=== PATIENT | male | born 1945 | race Caucasian/White ===

== ENCOUNTER 2019-05-15 09:38 | Outpatient (CLI) | payer MEDICARE, BC | END 2019-05-15 09:39 | disposition home or self-care (01) | LOC: LABBT 09:38 | PROVIDERS: ATTEND Surgery | DX: Z01.818 Encounter for other preprocedural examination (principal); N63.20 Unspecified lump in the left breast, unspecified quadrant | CPT/HCPCS: 93005; 93010 ==

== ENCOUNTER 2019-05-20 12:36 | Outpatient (CLI) | payer MEDICARE, BC ==
--- NOTE | 2019-05-20 13:19 | RAD ---
XR Chest Pa Lat STANDARD HISTORY: Preop cardiac catheter COMPARISON: 12/08/2007 FINDINGS: Changes of median sternotomy. The heart size is normal. The lungs are well expanded without focal areas of consolidation, pneumothorax or pleural effusions. IMPRESSION: No radiographic evidence of acute cardiopulmonary process.
[2019-05-20 13:46] LABS: #Basophils 0.1 thou/uL (0.0-0.2); #Eosinphils 0.4 thou/uL (0.0-0.7); #Lymphocytes 3.1 thou/uL (1.20-3.40); #Monocytes 0.9 thou/uL (0.11-0.59); #Neutrophils 7.6 thou/uL (1.40-6.50); %Basophils 0.8 % (0.0-1.0); %Eosinophils 3.5 % (0.0-10.0); %Lymphocytes 25.6 % (21.0-51.0); %Monocytes 7.3 % (0.0-10.0); %Neutrophils 62.8 % (42.0-75.0); Hemoglobin 13.4 g/dL (14.0-18.0); Mean Corpuscular HGB CONC 33.9 g/dL (32.0-36.0); Mean Corpuscular Volume 97.3 fL (78.0-98.0); Mean Platelet Volume 8.3 fL (7.4-10.4); Platelet Count 294 thou/uL (130-400); RBC Distribution Width 11.9 % (11.5-14.5); Red Blood Cell (RBC) Count 4.07 mill/uL (4.70-6.10); White Blood Cell (WBC) Count 12.1 thou/uL (4.8-10.8)
[2019-05-20 14:06] LABS: ALT (SGPT) 37 U/L (8-55); AST (SGOT) 37 U/L (5-34); Albumin 3.5 g/dL (3.4-4.8); Alkaline Phosphatase 120 U/L (40-110); Anion Gap 10 mmol/L (10-20); BUN (Urea Nitrogen) 15 mg/dL (8.4-25.7); Bilirubin, Total 0.5 mg/dL (0.2-1.2); Calc. Creatinine Clearance 0 mL/min (70-130); Calcium 8.7 mg/dL (7.8-10.44); Carbon Dioxide 25 mmol/L (23-31); Chloride 109 mmol/L (98-107); Estimated GFR-MDRD 64; Globulin 3.2 g/dL (2.4-3.5); Glucose 101 mg/dL (83-110); Potassium 3.6 mmol/L (3.5-5.1); Protein, Total 6.7 g/dL (5.8-8.1); Sodium 140 mmol/L (136-145)
== END 2019-05-20 12:37 | disposition home or self-care (01) ==
LOC: LABBT 12:36
PROVIDERS: ATTEND Internal Medicine Cardiovascular Disease
DX: Z01.818 Encounter for other preprocedural examination (principal)
CPT/HCPCS: 71046; 80053; 85025

== ENCOUNTER 2019-05-23 05:39 | Observation (INO) | payer MEDICARE, BC ==
[2019-05-20 12:47] VITALS: BMI 25.0
[2019-05-23] MEDS ORDERED: Heparin (Artline) 1,000 ML ONE (06:28)
[2019-05-23] MEDS ORDERED: Heparin 10,000 UNITS/1 ML VIAL ONE ×2 (06:28→14:22)
[2019-05-23 06:58] LABS: Cardiac Risk 3.3 (Less than 4.5)
[2019-05-23] MEDS ORDERED: diphenhydrAMINE 25 MG CAP ONE ×2 (07:15→12:53)
[2019-05-23] MEDS ORDERED: Hydrocortisone Sod Succ/PF 100 mg/2 ml Vial ONE ×2 (07:15→12:54)
[2019-05-23] MEDS ORDERED: Famotidine 20 MG TAB PO SCH ×2 (07:30→13:00)
[2019-05-23] MEDS ORDERED: diphenhydrAMINE 50 MG CAP PO SCH ×2 (13:00→17:45)
[2019-05-23] MEDS ORDERED: Hydrocortisone Sod Succ/PF 100 mg/2 ml Vial IVP SCH (13:00)
[2019-05-23] MEDS ORDERED: Iopamidol 370 76% 50 ML VIAL FS ONE (13:13)
[2019-05-23] MEDS ORDERED: Iopamidol 370 76% 100 ML VIAL ONE (13:13)
[2019-05-23] MEDS ORDERED: Midazolam HCl 2 mg/2 ml Vial ONE (15:09)
[2019-05-23] MEDS ORDERED: Fentanyl 100 MCG/2 ML VIAL ONE (15:09)
[2019-05-23] MEDS ORDERED: Bivalirudin 250 MG VIAL ONE (15:56)
[2019-05-23] MEDS ORDERED: Clopidogrel Bisulfate 300 MG TAB ONE (15:57)
[2019-05-23] MEDS ORDERED: Ondansetron PF 4 MG/2 ML Vial ONE (16:25)
[2019-05-23] MEDS ORDERED: Heparin (Artline) 500 ML ONE ×2 (16:31→17:03)
[2019-05-23] MEDS ORDERED: Atropine Sulfate 1 mg/10 ml Syringe ONE (16:53)
[2019-05-23] MEDS ORDERED: Sodium Chloride 0.9% 1,000 ML IV SCH (17:45)
[2019-05-23] MEDS ORDERED: predniSONE 20 MG TAB PO SCH ×2 (17:45→22:30)
[2019-05-23] MEDS ORDERED: diphenhydrAMINE 25 MG CAP PO SCH (22:30)
[2019-05-24 05:34] LABS: #Lymphocytes 1.2 thou/uL (1.20-3.40); #Monocytes 0.2 thou/uL (0.11-0.59); #Neutrophils 9.2 thou/uL (1.40-6.50); %Basophils 0.1 % (0.0-1.0); %Eosinophils 0.2 % (0.0-10.0); %Neutrophils 86.7 % (42.0-75.0); Mean Corpuscular HGB CONC 33.5 g/dL (32.0-36.0); Mean Corpuscular Hemoglobin 32.3 pg (27.0-31.0); Mean Corpuscular Volume 96.4 fL (78.0-98.0); Mean Platelet Volume 8.7 fL (7.4-10.4); Platelet Count 252 thou/uL (130-400); RBC Distribution Width 11.9 % (11.5-14.5); Red Blood Cell (RBC) Count 3.72 mill/uL (4.70-6.10); White Blood Cell (WBC) Count 10.6 thou/uL (4.8-10.8)
[2019-05-24 05:53] LABS: ALT (SGPT) 19 U/L (8-55); AST (SGOT) 24 U/L (5-34); Albumin 2.8 g/dL (3.4-4.8); Alkaline Phosphatase 91 U/L (40-110); Anion Gap 9 mmol/L (10-20); BUN (Urea Nitrogen) 16 mg/dL (8.4-25.7); Bilirubin, Total 0.5 mg/dL (0.2-1.2); Calc. Creatinine Clearance 74 mL/min (70-130); Calcium 7.9 mg/dL (7.8-10.44); Carbon Dioxide 23 mmol/L (23-31); Chloride 110 mmol/L (98-107); Estimated GFR-MDRD 71; Globulin 2.6 g/dL (2.4-3.5); Glucose 121 mg/dL (83-110); Potassium 4.1 mmol/L (3.5-5.1); Protein, Total 5.4 g/dL (5.8-8.1); Sodium 138 mmol/L (136-145)
[2019-05-24 11:35] VITALS: BP 118/58; TEMP 98.3
--- NOTE | 2019-05-25 03:24 | DIS ---
DATE OF ADMISSION: 05/23/2019 DATE OF DISCHARGE: 05/24/2019 DISCHARGE DIAGNOSES: 1. Status post coronary artery bypass graft with 3 of 4 bypass grafts patent. 2. 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 3. Dye allergy with rash in the past, premedicated prior to this procedure. 4. Hypercholesterolemia, under good control. 5. Hypertension. 6. Moderate mitral regurgitation. 7. Peripheral vascular disease. 8. Left breast mass, for definitive diagnosis by Dr. Mccoy in the near future. DISCHARGE DISPOSITION: The patient will be seen in 4 months with fasting lipid profile, comprehensive metabolic panel and carotid Doppler. He will need to undergo resection of the breast mass in the near future and he is an acceptable cardiac risk for general anesthesia. DISCHARGE MEDICATIONS: 1. Aspirin 325 daily. 2. Rosuvastatin 40 daily. 3. Pantoprazole 40 mg daily. 4. Metoprolol 50 mg ER daily. 5. Doxycycline 100 mg b.i.d. HOSPITAL COURSE: Mr. Cazares underwent cardiac PET scan for preoperative evaluation prior to resection of left breast mass. He was found to have a fixed distal inferior wall defect consistent with inferoapical akinesis seen at 2008 catheterization. He also had mid to distal anterior wall, apical and proximal to distal lateral wall ischemia. He underwent cardiac catheterization. Prior to catheterization for premedication, Solu-Medrol 100 mg and Benadryl 50 mg were given 6 hours apart prior to catheterization. Catheterization revealed a totally occluded LAD, the stents in the proximal and distal circumflex were patent. The first obtuse marginal stent had a distal in-stent 99% lesion. Right coronary artery is totally occluded in its midportion. Bypass grafts revealed patent POWERS to the LAD. The diagonal graft was occluded as it was in 2008. The first obtuse marginal graft was patent. The right coronary artery graft was patent with 30% distal stenosis. Right coronary artery graft had been previously stented and continued to show excellent result after more than a decade. The bypass graft to the obtuse marginal 1 was to the inferior branch. The stent was in the superior branch, which showed severe restenoses. Multiple wires were attempted to cross this area, which would not cross and it certainly may be a chronic total occlusion. Due to the late start time of the catheterization, he was observed overnight and then discharged. Job ID: [id number] [facility]
== END 2019-05-24 13:26 | disposition home or self-care (01) ==
LOC: CCL 05:39 → 2SW 21:43
PROVIDERS: ADMIT Internal Medicine Cardiovascular Disease; ATTEND Internal Medicine Cardiovascular Disease
PROC: 4A023N7 Measurement of Cardiac Sampling and Pressure, Left Heart, Percutaneous Approach (ICD-10-PCS; principal; 2019-05-23)
PROC: B2111ZZ Fluoroscopy of Multiple Coronary Arteries using Low Osmolar Contrast (ICD-10-PCS; 2019-05-23)
PROC: B2131ZZ Fluoroscopy of Multiple Coronary Artery Bypass Grafts using Low Osmolar Contrast (ICD-10-PCS; 2019-05-23)
PROC: B2181ZZ Fluoroscopy of Left Internal Mammary Bypass Graft using Low Osmolar Contrast (ICD-10-PCS; 2019-05-23)
DX: I25.810 Atherosclerosis of coronary artery bypass graft(s) without angina pectoris (principal); T82.855A Stenosis of coronary artery stent, initial encounter; I25.10 Atherosclerotic heart disease of native coronary artery without angina pectoris; I25.82 Chronic total occlusion of coronary artery; E78.00 Pure hypercholesterolemia, unspecified; I10 Essential (primary) hypertension; I34.0 Nonrheumatic mitral (valve) insufficiency; N63.20 Unspecified lump in the left breast, unspecified quadrant; Z87.891 Personal history of nicotine dependence; Z79.82 Long term (current) use of aspirin; Z79.899 Other long term (current) drug therapy; Z88.1 Allergy status to other antibiotic agents; Z91.041 Radiographic dye allergy status; Z95.1 Presence of aortocoronary bypass graft; Z95.5 Presence of coronary angioplasty implant and graft
CPT/HCPCS: 80053; 80061; 85025; 85347 ×2; 93005 ×2; 93458; C1769 ×3; C1887; G0378 ×2; 36415; 93010; 99152; 99153; J0461; J0583; J1644; J1720; J2250; J2405; J3010; J7512; Q0163; Q9967

== ENCOUNTER 2019-05-30 06:47 | Day surgery (SDC) | payer MEDICARE, BC ==
[2019-05-27 15:51] VITALS: BMI 26.3
[2019-05-30] MEDS ORDERED: Bupivacaine 0.25% HCL 30 ML VIAL ONE (09:30)
[2019-05-30] MEDS ORDERED: Lidocaine 1% w/Epinephrine 1:100K 20 ML VIAL ONE (09:30)
[2019-05-30] MEDS ORDERED: Fentanyl 100 MCG/2 ML VIAL ONE (09:38)
[2019-05-30] MEDS ORDERED: ePHEDrine/0.9% NaCl/PF SYRINGE 50 mg/10 ml ONE (10:19)
--- NOTE | 2019-05-30 11:48 | OP ---
DATE OF PROCEDURE: 05/30/2019 PREOPERATIVE DIAGNOSIS: Infected left breast mass. PROCEDURE PERFORMED: I and D with breast biopsy. INDICATIONS: This is a 73-year-old male, who had an inflamed left breast mass subareolar that has not responded to antibiotics. FINDINGS: There was purulent fluid. There was inflammatory rind, approximately 2 cm piece of tissue removed. DESCRIPTION OF PROCEDURE: After informed consent was obtained, the patient was taken to the operating room, given general mask anesthesia, placed in supine position. His chest was prepped and draped in usual fashion. Local anesthesia infiltrated subcutaneously and deep. A circumareolar incision was performed to excise part of the skin as well as the mass. Purulent fluid was expressed. This was sent for culture. The cavity was irrigated with saline. Hemostasis achieved with electrocautery, was packed open with Betadine gauze. The patient tolerated the procedure well, transferred to Recovery in good condition. Sponge and needle count verified correct x2. Job ID: [id number]
[2019-05-30] MEDS ORDERED: PROPOFOL 200 MG/20 ML VIAL ONE (14:20)
[2019-05-30] MEDS ORDERED: Lidocaine 1% PF 5 ML VIAL ONE (14:20)
== END 2019-05-30 11:39 | disposition home or self-care (01) ==
LOC: SDC 06:47
PROVIDERS: ATTEND Surgery
PROC: 0HBU0ZZ Excision of Left Breast, Open Approach (ICD-10-PCS; principal; 2019-05-30)
DX: N63.20 Unspecified lump in the left breast, unspecified quadrant (principal); N61.1 Abscess of the breast and nipple; B96.89 Other specified bacterial agents as the cause of diseases classified elsewhere; N64.1 Fat necrosis of breast; E78.00 Pure hypercholesterolemia, unspecified; M19.90 Unspecified osteoarthritis, unspecified site; I11.9 Hypertensive heart disease without heart failure; F17.210 Nicotine dependence, cigarettes, uncomplicated; Z79.82 Long term (current) use of aspirin; Z79.899 Other long term (current) drug therapy; Z88.1 Allergy status to other antibiotic agents; Z91.041 Radiographic dye allergy status; Z98.1 Arthrodesis status; Z95.1 Presence of aortocoronary bypass graft
CPT/HCPCS: 87070; 87205; 88304; J0690; J2001; J2704; J3010; S0020

== ENCOUNTER 2020-10-15 12:45 | Outpatient (CLI) | payer MEDICARE, BC ==
[2020-10-15] MEDS ORDERED: Iopamidol 370 76% 100 ML VIAL ONE (14:56)
== END 2020-10-15 12:46 | disposition home or self-care (01) ==
LOC: CT 12:45
PROVIDERS: ATTEND Thoracic Surgery (Cardiothoracic Vascular Surgery)
DX: I65.23 Occlusion and stenosis of bilateral carotid arteries (principal)
CPT/HCPCS: 70498; Q9967

== ENCOUNTER 2021-02-05 07:24 | Day surgery (SDC) | payer MEDICARE, BC ==
[2021-02-04 12:10] VITALS: BMI 25.7
[2021-02-05] MEDS ORDERED: Fentanyl 100 MCG/2 ML VIAL ONE (09:08)
[2021-02-05] MEDS ORDERED: Bupivacaine 0.25% HCL 30 ML VIAL ONE (09:08)
[2021-02-05] MEDS ORDERED: Lidocaine 1% w/Epinephrine 1:100K 30 ML VIAL ONE (09:08)
[2021-02-05] MEDS ORDERED: PROPOFOL 200 MG/20 ML VIAL ONE (09:26)
[2021-02-05] MEDS ORDERED: Lidocaine 1% PF 5 ML VIAL ONE (09:26)
[2021-02-05] MEDS ORDERED: Glycopyrrolate 0.2 MG/ML 5 ML SYRINGE ONE (09:26)
[2021-02-05] MEDS ORDERED: Ondansetron PF 4 MG/2 ML Vial ONE (09:26)
[2021-02-05] MEDS ORDERED: Dexamethasone 20 MG/5 ML VIAL ONE (09:26)
== END 2021-02-05 11:30 | disposition home or self-care (01) ==
LOC: SDC 07:24
PROVIDERS: ATTEND Surgery
PROC: 0HTU0ZZ Resection of Left Breast, Open Approach (ICD-10-PCS; principal; 2021-02-05)
DX: N64.89 Other specified disorders of breast (principal); N61.1 Abscess of the breast and nipple; N64.59 Other signs and symptoms in breast; E78.00 Pure hypercholesterolemia, unspecified; M19.90 Unspecified osteoarthritis, unspecified site; I11.9 Hypertensive heart disease without heart failure; F17.210 Nicotine dependence, cigarettes, uncomplicated; Z79.82 Long term (current) use of aspirin; Z79.899 Other long term (current) drug therapy; Z88.1 Allergy status to other antibiotic agents; Z91.041 Radiographic dye allergy status; Z95.1 Presence of aortocoronary bypass graft; Z98.1 Arthrodesis status
CPT/HCPCS: 88304; J0690; J1100; J2405; J2704; J3010; S0020

== ENCOUNTER 2021-05-12 10:27 | Inpatient (IN) | payer MEDICARE, BC ==
[2021-05-12] MEDS ORDERED: Morphine 4 MG/ML VIAL ONE ×2 (10:42→11:54)
[2021-05-12] MEDS ORDERED: Ondansetron PF 4 MG/2 ML Vial ONE (10:42)
[2021-05-12] MEDS ORDERED: Famotidine/PF 20 mg/2ml Vial ONE (10:42)
[2021-05-12] MEDS ORDERED: methylPREDNISolone Sod Succ/PF 125 MG/2 ML VIAL ONE (10:42)
[2021-05-12] MEDS ORDERED: diphenhydrAMINE 50 MG/ML VIAL ONE ×2 (10:42→10:57)
[2021-05-12] MEDS ORDERED: Aspirin Chewable 81 MG TAB ONE (10:52)
[2021-05-12] MEDS ORDERED: Hydrocortisone Sod Succ/PF 100 mg/2 ml Vial ONE (10:57)
[2021-05-12] MEDS ORDERED: Heparin 10,000 UNITS/ 10 ML VIAL ONE ×2 (11:01→12:50)
[2021-05-12] MEDS ORDERED: Nitroglycerin 100MG/250ML BOT 0 ML ONE (11:06)
[2021-05-12] MEDS ORDERED: Atropine Sulfate 1 mg/10 ml Syringe ONE (11:24)
[2021-05-12 11:27] LABS: #Basophils 0.1 thou/uL (0.0-0.2); #Eosinphils 0.4 thou/uL (0.0-0.7); #Lymphocytes 2.3 thou/uL (1.20-3.40); #Neutrophils 8.6 thou/uL (1.40-6.50); %Basophils 0.7 % (0.0-1.0); %Eosinophils 3.2 % (0.0-10.0); %Lymphocytes 18.4 % (21.0-51.0); %Monocytes 8.1 % (0.0-10.0); %Neutrophils 69.6 % (42.0-75.0); Hemoglobin 15.7 g/dL (14.0-18.0); Mean Corpuscular HGB CONC 34.2 g/dL (32.0-36.0); Mean Corpuscular Hemoglobin 33.9 pg (27.0-31.0); Mean Corpuscular Volume 99.2 fL (78.0-98.0); Mean Platelet Volume 9.2 fL (7.4-10.4); Platelet Count 195 thou/uL (130-400); RBC Distribution Width 11.8 % (11.5-14.5); Red Blood Cell (RBC) Count 4.62 mill/uL (4.70-6.10); White Blood Cell (WBC) Count 12.3 thou/uL (4.8-10.8)
[2021-05-12 11:34] LABS: INR-International Normal Ratio 1.1; Prothrombin Time 13.9 sec (12.0-14.7)
[2021-05-12 11:35] LABS: PTT 36.4 sec (22.9-36.1)
[2021-05-12 11:46] LABS: ALT (SGPT) 19 U/L (8-55); AST (SGOT) 27 U/L (5-34); Alkaline Phosphatase 78 U/L (40-110); Anion Gap 17 mmol/L (10-20); BUN (Urea Nitrogen) 12 mg/dL (8.4-25.7); Calc. Creatinine Clearance 0 mL/min (70-130); Carbon Dioxide 20 mmol/L (23-31); Chloride 106 mmol/L (98-107); Glucose 112 mg/dL (83-110); Potassium 3.6 mmol/L (3.5-5.1); Sodium 139 mmol/L (136-145)
[2021-05-12 12:08] LABS: CKMB 4.6 ng/mL (0-6.6)
[2021-05-12] MEDS ORDERED: Clopidogrel Bisulfate 300 MG TAB ONE (12:09)
[2021-05-12] MEDS ORDERED: Milk Of Magnesia 30 ML UDCUP PO PRN (12:16)
[2021-05-12] MEDS ORDERED: traMADol HCl 50 MG TAB PO PRN (12:16)
[2021-05-12] MEDS ORDERED: Sodium Chloride 0.9% 1,000 ML IV SCH (12:30)
[2021-05-12] MEDS ORDERED: Sodium Chloride 0.9% 1,000 ML BAG ONE (12:50)
[2021-05-12 12:59] VITALS: BMI 25.9
[2021-05-12] MEDS ORDERED: Iopamidol 370 76% 50 ML VIAL FS ONE ×2 (13:13)
[2021-05-12 13:49] LABS: Troponin I 2.326 ng/mL (< 0.028)
[2021-05-12 16:38] LABS: SARS-CoV-2 NAA Rapid Test Not Detected (NotDetected)
[2021-05-12 19:30] LABS: Troponin I 118.901 ng/mL (< 0.028)
[2021-05-12] MEDS: Acetaminophen/Codeine 30-300mg Tablet PO PRN (20:00)
[2021-05-13 03:49] LABS: #Monocytes 0.3 thou/uL (0.11-0.59); #Neutrophils 10.2 thou/uL (1.40-6.50); %Basophils 0.1 % (0.0-1.0); %Lymphocytes 8.7 % (21.0-51.0); %Monocytes 2.8 % (0.0-10.0); %Neutrophils 88.4 % (42.0-75.0); Hemoglobin 13.3 g/dL (14.0-18.0); Mean Corpuscular HGB CONC 33.7 g/dL (32.0-36.0); Mean Corpuscular Hemoglobin 33.5 pg (27.0-31.0); Mean Corpuscular Volume 99.5 fL (78.0-98.0); Mean Platelet Volume 9.2 fL (7.4-10.4); Platelet Count 146 thou/uL (130-400); RBC Distribution Width 11.8 % (11.5-14.5); Red Blood Cell (RBC) Count 3.96 mill/uL (4.70-6.10); White Blood Cell (WBC) Count 11.6 thou/uL (4.8-10.8)
[2021-05-13 04:18] LABS: ALT (SGPT) 50 U/L (8-55); AST (SGOT) 294 U/L (5-34); Albumin 3.2 g/dL (3.4-4.8); Alkaline Phosphatase 66 U/L (40-110); Anion Gap 11 mmol/L (10-20); BUN (Urea Nitrogen) 12 mg/dL (8.4-25.7); Bilirubin, Total 0.7 mg/dL (0.2-1.2); Calc. Creatinine Clearance 69 mL/min (70-130); Calcium 8.3 mg/dL (7.8-10.44); Carbon Dioxide 19 mmol/L (23-31); Chloride 111 mmol/L (98-107); Globulin 2.7 g/dL (2.4-3.5); Glucose 139 mg/dL (83-110); Potassium 4.2 mmol/L (3.5-5.1); Protein, Total 5.9 g/dL (5.8-8.1); Sodium 137 mmol/L (136-145)
[2021-05-13] MEDS: Clopidogrel Bisulfate 75 MG TAB PO SCH (08:15)
[2021-05-13] MEDS ORDERED: Aspirin Chewable 81 MG TAB PO SCH (09:00)
[2021-05-13] MEDS: Rosuvastatin 20 MG TAB PO SCH (20:54)
[2021-05-13] MEDS: Acetaminophen/Codeine 30-300mg Tablet PO PRN (20:55)
[2021-05-14] MEDS ORDERED: Magnesium 2 GM/50 ML 2 GM in Premix Bag 1 BAG IVPB SCH (09:00)
[2021-05-14] MEDS: Aspirin 325 mg Enteric Coated Tablet PO SCH (09:26)
[2021-05-14] MEDS: Clopidogrel Bisulfate 75 MG TAB PO SCH (09:26)
[2021-05-14] MEDS ORDERED: Amiodarone 150 MG, Admixture Fee 1 EACH in Dextrose 5% in Water 100 ML IVPB SCH (10:15)
[2021-05-14] MEDS: Amiodarone 450 MG, Admixture Fee 1 EACH in Dextrose 5% in Water 250 ML IVPB SCH ×2 (10:43→16:09)
[2021-05-14] MEDS: Rosuvastatin 20 MG TAB PO SCH (20:46)
[2021-05-15] MEDS: Aspirin 325 mg Enteric Coated Tablet PO SCH (07:49)
[2021-05-15] MEDS: Clopidogrel Bisulfate 75 MG TAB PO SCH (07:49)
[2021-05-15] MEDS: Amiodarone 450 MG, Admixture Fee 1 EACH in Dextrose 5% in Water 250 ML IVPB SCH (08:46)
[2021-05-15] MEDS ORDERED: Enoxaparin Sodium 80 MG/0.8 ML SYRINGE SC SCH (13:15)
[2021-05-15] MEDS: Enoxaparin Sodium 80 MG/0.8 ML SYRINGE SC SCH (20:06)
[2021-05-15] MEDS: Rosuvastatin 20 MG TAB PO SCH (20:20)
[2021-05-16] MEDS: Amiodarone 450 MG, Admixture Fee 1 EACH in Dextrose 5% in Water 250 ML IVPB SCH (02:26)
[2021-05-16] MEDS: Clopidogrel Bisulfate 75 MG TAB PO SCH (09:49)
[2021-05-16] MEDS: Aspirin 325 mg Enteric Coated Tablet PO SCH (09:49)
[2021-05-16] MEDS: Enoxaparin Sodium 80 MG/0.8 ML SYRINGE SC SCH ×2 (09:49→20:51)
[2021-05-16] MEDS: Rosuvastatin 20 MG TAB PO SCH (20:51)
[2021-05-17] MEDS: Amiodarone 450 MG, Admixture Fee 1 EACH in Dextrose 5% in Water 250 ML IVPB SCH (06:43)
[2021-05-17] MEDS ORDERED: Gentamicin 80 MG/2 ML VIAL ONE (11:56)
[2021-05-17] MEDS ORDERED: CEFAZOLIN 1 GM VIAL ONE (11:56)
[2021-05-17] MEDS ORDERED: ceFAZolin 2 GM/DEX 5% 100 ML BAG ONE (11:56)
[2021-05-17] MEDS ORDERED: Propofol 500 MG/50 ML VIAL ONE (12:44)
[2021-05-17] MEDS: Clopidogrel Bisulfate 75 MG TAB PO SCH (16:16)
[2021-05-17] MEDS: Aspirin 325 mg Enteric Coated Tablet PO SCH (16:17)
[2021-05-17] MEDS: Cephalexin 250 MG CAP PO SCH ×2 (17:43→21:16)
[2021-05-17] MEDS: Rosuvastatin 20 MG TAB PO SCH (21:15)
[2021-05-17] MEDS: Amiodarone 200 MG TAB PO SCH (21:16)
[2021-05-18 08:37] VITALS: BP 164/76; TEMP 97.7
[2021-05-18] MEDS: Aspirin 325 mg Enteric Coated Tablet PO SCH (08:38)
[2021-05-18] MEDS: Cephalexin 250 MG CAP PO SCH (08:38)
[2021-05-18] MEDS: Amiodarone 200 MG TAB PO SCH (08:39)
[2021-05-18] MEDS ORDERED: Carvedilol 3.125 MG TAB PO SCH (17:00)
[2021-05-25] MEDS ORDERED: Amiodarone 200 MG TAB PO SCH (09:00)
[2021-06-01] MEDS ORDERED: Amiodarone 200 MG TAB PO SCH (09:00)
== END 2021-05-18 11:05 | disposition home or self-care (01) | DRG 224 ==
LOC: ERS 10:27 → CCU 10:56 → 2NO 05-15 23:21
PROVIDERS: ADMIT Internal Medicine Cardiovascular Disease; ATTEND Internal Medicine Cardiovascular Disease
PROC: 4A023N7 Measurement of Cardiac Sampling and Pressure, Left Heart, Percutaneous Approach (ICD-10-PCS; principal; 2021-05-12)
PROC: B2111ZZ Fluoroscopy of Multiple Coronary Arteries using Low Osmolar Contrast (ICD-10-PCS; 2021-05-12)
PROC: B2131ZZ Fluoroscopy of Multiple Coronary Artery Bypass Grafts using Low Osmolar Contrast (ICD-10-PCS; 2021-05-12)
PROC: B2181ZZ Fluoroscopy of Left Internal Mammary Bypass Graft using Low Osmolar Contrast (ICD-10-PCS; 2021-05-12)
PROC: 0JH608Z Insertion of Defibrillator Generator into Chest Subcutaneous Tissue and Fascia, Open Approach (ICD-10-PCS; 2021-05-17)
PROC: 02HK3KZ Insertion of Defibrillator Lead into Right Ventricle, Percutaneous Approach (ICD-10-PCS; 2021-05-17)
DX: T82.868A Thrombosis due to vascular prosthetic devices, implants and grafts, initial encounter (principal); I21.19 ST elevation (STEMI) myocardial infarction involving other coronary artery of inferior wall; I47.2 Ventricular tachycardia; Z20.822 Contact with and (suspected) exposure to COVID-19; I10 Essential (primary) hypertension; E78.00 Pure hypercholesterolemia, unspecified; T82.855A Stenosis of coronary artery stent, initial encounter; Y83.8 Other surgical procedures as the cause of abnormal reaction of the patient, or of later complication, without mention of misadventure at the time of the procedure; I25.10 Atherosclerotic heart disease of native coronary artery without angina pectoris; F17.210 Nicotine dependence, cigarettes, uncomplicated; E78.5 Hyperlipidemia, unspecified; I34.0 Nonrheumatic mitral (valve) insufficiency; I73.9 Peripheral vascular disease, unspecified; Z79.82 Long term (current) use of aspirin; Z95.1 Presence of aortocoronary bypass graft; Z95.5 Presence of coronary angioplasty implant and graft; Z90.12 Acquired absence of left breast and nipple; Z79.899 Other long term (current) drug therapy; Z88.1 Allergy status to other antibiotic agents; Z91.041 Radiographic dye allergy status; Z90.89 Acquired absence of other organs
CPT/HCPCS: 33249; 36415; 71045; 80053; 82553; 84484; 85025; 85347; 85610; 85730; 92920; 93005; 93010; 93306; 93455; 93641; 93798; 96374; 96375; 97139; C1757; C1769; C1777; C1786; J0282; J0461; J0690; J1200; J1580; J1644; J1650; J1720; J2270; J2405; J2704; J2930; J3475; J7050; J7070; Q9967; S0028; U0002

== ENCOUNTER 2024-04-21 11:21 | Inpatient (IN) | payer MEDICARE ==
[~2024-04-21 11:21] MED LIST: Iopamidol-370 76% 500 ML MDV (1 ML CHARGE) ONE
[2024-04-21] MEDS ORDERED: diphenhydrAMINE 50 MG/ML VIAL ONE (11:57)
[2024-04-21] MEDS ORDERED: methylPREDNISolone Sod Succ/PF 125 MG/2 ML VIAL ONE (11:57)
[2024-04-21] MEDS ORDERED: Famotidine/PF 20 mg/2ml Vial ONE (11:59)
[2024-04-21 12:10] LABS: #Basophils 0.05 10x3/uL (0.0-0.2); %Basophils 0.6 % (0.0-1.0); %Eosinophils 2.9 % (0.0-10.0); %Lymphocytes 28.4 % (21.0-51.0); %Monocytes 9.4 % (0.0-10.0); %Neutrophils 58.5 % (42.0-75.0); Hematocrit 37.7 % (42.0-52.0); Hemoglobin 12.8 g/dL (14.0-18.0); Mean Corpuscular Hemoglobin 33.9 pg (27.0-31.0); Mean Corpuscular Volume 99.7 fL (78.0-98.0); Mean Platelet Volume 12.3 fL (7.4-10.4); Platelet Count 159 10x3/uL (130-400); RBC Distribution Width 13.7 % (11.5-14.5); Red Blood Cell (RBC) Count 3.78 mill/uL (4.70-6.10)
[2024-04-21 12:16] LABS: ALT (SGPT) 11 U/L (8-55); AST (SGOT) 18 U/L (5-34); Albumin 3.6 g/dL (3.4-4.8); Alkaline Phosphatase 61 U/L (40-110); Anion Gap 14 mmol/L (10-20); BUN (Urea Nitrogen) 19 mg/dL (8.4-25.7); Bilirubin, Total 0.7 mg/dL (0.2-1.2); Calc. Creatinine Clearance 0 mL/min (70-130); Calcium 8.7 mg/dL (7.8-10.44); Carbon Dioxide 21 mmol/L (23-31); Chloride 112 mmol/L (98-107); Estimated GFR 58; Glucose 113 mg/dL (83-110); Potassium 3.7 mmol/L (3.5-5.1); Protein, Total 6.6 g/dL (5.8-8.1); Sodium 143 mmol/L (136-145)
[2024-04-21 12:20] LABS: Troponin I Less than 0.010 ng/mL (< 0.028)
[2024-04-21 12:27] LABS: INR-International Normal Ratio 1.1; Prothrombin Time 14.1 sec (12.0-14.7)
[2024-04-21 12:28] LABS: PTT 33.3 sec (22.9-36.1)
[2024-04-21 16:06] LABS: Troponin I Less than 0.010 ng/mL (< 0.028)
[2024-04-21] MEDS ORDERED: Ondansetron PF 4 MG/2 ML Vial IVP PRN (16:07)
[2024-04-21] MEDS ORDERED: Calcium Carbonate 500 MG ChewTAB PO PRN (16:07)
[2024-04-21] MEDS ORDERED: Acetaminophen 325 MG TAB PO PRN (16:07)
[2024-04-21] MEDS ORDERED: Acetaminophen 650 MG Suppository PR PRN (16:07)
[2024-04-21] MEDS ORDERED: Ondansetron ODT 4 MG TAB PO PRN (16:07)
[2024-04-21] MEDS ORDERED: Senokot S 8.6-50 MG TAB PO PRN (16:07)
[2024-04-21] MEDS ORDERED: hydrALAZINE 20 MG/ML VIAL SLOW IVP PRN (16:07)
[2024-04-21 18:05] VITALS: BMI 25.3
[2024-04-21 19:03] LABS: Troponin I Less than 0.010 ng/mL (< 0.028)
[2024-04-21] MEDS: CeleCOXIB 100 MG CAP PO SCH (20:59)
[2024-04-21] MEDS: Rosuvastatin 20 MG TAB PO SCH (21:00)
[2024-04-22 04:31] LABS: #Basophils Less than 0.03 10x3/uL (0.0-0.2); #Eosinophils Less than 0.03 10x3/uL (0.0-0.7); %Basophils 0.1 % (0.0-1.0); %Lymphocytes 7.9 % (21.0-51.0); %Monocytes 1.3 % (0.0-10.0); Hematocrit 35.2 % (42.0-52.0); Hemoglobin 11.6 g/dL (14.0-18.0); Mean Corpuscular Volume 100.3 fL (78.0-98.0); Mean Platelet Volume 12.2 fL (7.4-10.4); Platelet Count 134 10x3/uL (130-400); RBC Distribution Width 13.8 % (11.5-14.5); Red Blood Cell (RBC) Count 3.51 mill/uL (4.70-6.10)
[2024-04-22 04:53] LABS: Anion Gap 13 mmol/L (10-20); BUN (Urea Nitrogen) 19 mg/dL (8.4-25.7); Calc. Creatinine Clearance 59 mL/min (70-130); Calcium 8.1 mg/dL (7.8-10.44); Carbon Dioxide 18 mmol/L (23-31); Chloride 113 mmol/L (98-107); Estimated GFR 59; Glucose 139 mg/dL (83-110); Potassium 3.6 mmol/L (3.5-5.1); Sodium 140 mmol/L (136-145)
[2024-04-22] MEDS: Aspirin 81 mg Enteric Coated Tablet PO SCH (08:38)
[2024-04-22] MEDS: Clopidogrel Bisulfate 75 MG TAB PO SCH (08:38)
[2024-04-22] MEDS: Pantoprazole DR 40 MG TAB PO SCH (08:38)
[2024-04-22] MEDS: Enoxaparin 40 MG (0.4 mL) SYRINGE SC SCH (08:39)
[2024-04-22] MEDS ORDERED: Aspirin 325 mg Enteric Coated Tablet PO SCH (09:00)
[2024-04-22 10:41] LABS: Cardiac Risk 2.6 (Less than 4.5)
[2024-04-22] MEDS: Sacubitril 24MG/Valsartan 26 MG TAB PO SCH (20:20)
[2024-04-22] MEDS: Ranolazine ER 500 MG TAB PO SCH (20:20)
[2024-04-23] MEDS: Pantoprazole DR 40 MG TAB PO SCH (09:31)
[2024-04-23] MEDS: Empagliflozin 10 MG TAB PO SCH (09:32)
[2024-04-25 16:15] VITALS: BP 163/79; TEMP 98.1
== END 2024-04-25 16:20 | DRG 65 ==
LOC: ERS 11:21 → 2SE 15:01 → OBSVTOIN 04-22 14:30
PROVIDERS: ADMIT Internal Medicine; ATTEND Family Medicine
DX: I63.9 Cerebral infarction, unspecified (principal); G81.94 Hemiplegia, unspecified affecting left nondominant side; I10 Essential (primary) hypertension; I25.10 Atherosclerotic heart disease of native coronary artery without angina pectoris; E78.5 Hyperlipidemia, unspecified; F17.210 Nicotine dependence, cigarettes, uncomplicated; I73.00 Raynaud's syndrome without gangrene; I65.22 Occlusion and stenosis of left carotid artery; R29.702 NIHSS score 2; I25.2 Old myocardial infarction; Z98.890 Other specified postprocedural states; Z88.1 Allergy status to other antibiotic agents; Z91.041 Radiographic dye allergy status; Z95.5 Presence of coronary angioplasty implant and graft; Z95.1 Presence of aortocoronary bypass graft; Z95.0 Presence of cardiac pacemaker; Z98.52 Vasectomy status
CPT/HCPCS: 36415; 36416; 70450; 70496; 70498; 70551; 71045; 80048; 80053; 80061; 84484; 85025; 85610; 85730; 93005; 94760; 96374; 96375; J1200; J1650; J2919; J3490; Q9967

== ENCOUNTER 2025-03-19 09:16 | Outpatient (CLI) | payer MEDICARE | END 2025-03-19 09:17 | disposition home or self-care (01) | LOC: BICCT 09:16 | PROVIDERS: ATTEND Urology | DX: N40.1 Benign prostatic hyperplasia with lower urinary tract symptoms (principal); N28.9 Disorder of kidney and ureter, unspecified; R68.89 Other general symptoms and signs; I70.90 Unspecified atherosclerosis; I71.43 Infrarenal abdominal aortic aneurysm, without rupture; K57.30 Diverticulosis of large intestine without perforation or abscess without bleeding; Z87.442 Personal history of urinary calculi | CPT/HCPCS: 74176 ==